=== PATIENT | male | born 1990 | race Caucasian/White ===

== ENCOUNTER → 2020-09-01 | Outpatient (CLI) | payer BC ==
--- NOTE | 2020-09-01 10:14 | 2DMMODE ---
[facility] [place] [address] 2 D/M-MODE ECHOCARDIOGRAM Name: BRIGIDA HERNANDEZ Room #: REG CECILE BrowneErmelindaJanettErmelinda#: [id number] Admission: 09/01/20 Attend Phys: Garrick Ríos MD Discharge: Date of : 86 Report #: [id number] THIS REPORT FOR: cc: Garrick Ríos MD, Rene P. MD Park, Jin S. MD ~ APPROVED REPORT Study performed: 09/01/2020 08:47:54 EXAM: Comprehensive 2D, Doppler, and color-flow Echocardiogram Patient Location: Out-Patient Room #: 2 Status: routine BSA: 2.04 HR: 97 bpm BP: 124/76 mmHg Rhythm: NSR Other Information Study Quality: Good Indications Chest discomfort, Family history Bicuspid Aortic valve 2D Dimensions RVDd: 30.64 mm IVSd: 10.93 (7-11mm) LVOT Diam: 23.88 (18-24mm) LVDd: 43.32 mm PWd: 11.29 (7-11mm) Ascending Ao: 24.30 (22-36mm) LVDs: 26.08 (25-40mm) Left Atrium: 29.88 (27-40mm) Aortic Root: 32.67 mm IVC: 12.00 mm Volumes Left Atrial Volume (Systole) Single Plane 4CH: 40.78 mL Single Plane 2CH: 31.12 mL LA ESV Index: 20.00 mL/m2 Aortic Valve AoV Peak Abdullahi.: 1.62 m/s AO Peak Gr.: 10.52 mmHg LVOT Max P.75 mmHg LVOT Max V: 1.39 m/s NILDA Vmax: 3.84 cm2 [facility] [address] [place] [address] 2 D/M-MODE ECHOCARDIOGRAM Name: MARYBRIGIDA SMITH Room #: REG [facility]#: [id number] Admission: 09/01/20 Attend Phys: Hollie Villaseñor Discharge: Date of : 86 Report #: [id number] Mitral Valve E/A Ratio: 1.7 MV Decel. Time: 156.08 ms MV E Max Abdullahi.: 0.85 m/s MV A Abdullahi.: 0.51 m/s MV PHT: 45.26 ms Pulmonary Valve PV Peak Abdullahi.: 1.01 m/s PV Peak Gr.: 4.08 mmHg Pulmonary Vein P Vein S: 0.83 m/s P Vein A: 0.30 m/s P Vein D: 0.68 m/s P Vein A Dur.: 87.7 msec P Vein S/D Ratio: 1.22 Left Ventricle The left ventricle is normal size. There is normal LV segmental wall motion. There is normal left ventricular wall thickness. Left ventricular systolic function is normal. The left ventricular ejection fraction is within the normal range. LVEF is 55-60%. The left ventricular diastolic function is normal. Right Ventricle The right ventricle is normal size. The right ventricular systolic function is normal. Atria The left atrium size is normal. The right atrium size is normal. Aortic Valve The aortic valve is normal in structure. No aortic regurgitation is present. There is no aortic valvular stenosis. Mitral Valve The mitral valve is normal in structure. There is no mitral valve regurgitation noted. No evidence of mitral valve stenosis. Tricuspid Valve The tricuspid valve is normal in structure. There is no tricuspid valve regurgitation noted. Pulmonic Valve The pulmonary valve is normal in structure. There is no pulmonic valvular regurgitation. [facility] [address] [place] [address] 2 D/M-MODE ECHOCARDIOGRAM Name: BRIGIDA HERNANDEZ Room #: REG [facility].#: [id number] Admission: 09/01/20 Attend Phys: Hollie Villaseñor Discharge: Date of : 86 Report #: [id number] Great Vessels The aortic root is normal in size. IVC is normal in size and collapses >50% with inspiration. Pericardium There is no pericardial effusion. <Conclusion> The left ventricle is normal size. There is normal left ventricular wall thickness. Left ventricular systolic function is normal. The right ventricle is normal size. The left atrium size is normal. The aortic valve is normal in structure. The mitral valve is normal in structure. <ELECTRONICALLY SIGNED> By: Bladimir Acuña MD 09/01/20 1013 [id number] Bladimir Acuña MD /INF
== END ==
LOC: CV 09:12
PROVIDERS: ATTEND Family Medicine
DX: R07.89 Other chest pain (principal)